=== PATIENT | female | born 1975 | race Caucasian/White ===

== ENCOUNTER 2016-11-08 03:32 | Emergency (ER) | payer OTHER ==
[2016-11-08] MEDS ORDERED: oxyCODONE/Acetamin 5/325 MG* TAB PO ONE (04:22)
[2016-11-08 05:14] VITALS: BP 110/72
--- NOTE | 2016-11-08 05:40 | ED ---
Severo Syed Matthew, scribed for Kit Love on 11/08/16 at 0459 . Complex/Multi-Sys Presentation - HPI Summary HPI Summary: A 41 y/o female presents to the ED with constant nerve pain in her bilateral upper and lower extremities. The pain is rated 7/10 in severity. She states she has a long Hx of nerve pain from a ganglion cyst. The cyst was removed once, but has returned. She is seeking pain medication. She was seen at the pain clinic last week. - History Of Current Complaint Chief Complaint: EDGeneral Time Seen by Provider: 11/08/16 04:11 Hx Obtained From: Patient Onset/Duration: Still Present Timing: Constant Severity Currently: Moderate Severity Initially: Moderate Location: Pain At: - bilateral UE and LE - Allergies/Home Medications Allergies/Adverse Reactions: Allergies Allergy/AdvReac Type Severity Reaction Status Date / Time Amoxicillin [From Augmentin] Allergy Rash Verified 06/02/16 15:27 Clavulanic Acid Allergy Rash Verified 06/02/16 15:27 [From Augmentin] PMH/Surg Hx/FS Hx/Imm Hx Endocrine/Hematology History: Denies: Hx Diabetes Cardiovascular History: Denies: Hx Hypertension, Hx Pacemaker/ICD Respiratory History: Reports: Hx Asthma GI History: Reports: Hx Gastroesophageal Reflux Disease - ON MEDICATION FOR-PRN , Hx Irritable Bowel History: Denies: Hx Renal Disease Musculoskeletal History: Reports: Hx Arthritis - BACK, HANDS, Hx Bursitis Sensory History: Denies: Hx Contacts or Glasses, Hx Hearing Aid Opthamlomology History: Denies: Hx Contacts or Glasses Neurological History: Reports: Hx Nerve Disease - NEUROPATHY, Other Neuro Impairments/Disorders - RIGHT SIDE PERIPHERAL NEUROPATHY Psychiatric History: Reports: Hx Anxiety - ON MEDICATION FOR; PANIC DISORDER, Hx Depression - ON MEDICATION, Hx Panic Disorder - ANXIETY - Surgical History Surgery Procedure, Year, and Place: RT KNEE ACL REPAIR, ,BREAST AUGMENTATION 2001. RIGHT GANGLION CYST REMOVED 01/2016. CANCEROUS MOLE REMOVED FROM LEFT FOOT 2011 Hx Anesthesia Reactions: Yes - TAKES A LITTLE MORE TIME TO COME OUT OF ANESTHESIA;NAUSEA Infectious Disease History: No Infectious Disease History: Denies: Traveled Outside the [place] in Last 30 Days - Family History Known Family History: Positive: Other - cousin of colon CA age 39 IBS gastroparesis - Social History Alcohol Use: None Substance Use Type: Reports: None Smoking Status (MU): Heavy Every Day Tobacco Smoker Amount Used/How Often: 15 CIGARETTES PER DAY X 20 YEARS Have You Smoked in the Last Year: Yes Review of Systems Constitutional: Negative Eyes: Negative ENT: Negative Cardiovascular: Negative Respiratory: Negative Gastrointestinal: Negative Genitourinary: Negative Positive: Myalgia - bilateral UE and LE pain Skin: Negative Neurological: Negative Psychological: Normal All Other Systems Reviewed And Are Negative: Yes Physical Exam Triage Information Reviewed: Yes Vital Signs On Initial Exam: Initial Vitals Temp Pulse Resp BP Pulse Ox 97.5 F 83 20 131/96 96 11/08/16 03:34 11/08/16 03:34 11/08/16 03:34 11/08/16 03:34 11/08/16 03:34 Vital Signs Reviewed: Yes Appearance: Positive: Well-Appearing, No Pain Distress Skin: Positive: Warm, Skin Color Reflects Adequate Perfusion, Dry Head/Face: Positive: Normal Head/Face Inspection Eyes: Positive: EOMI, KIM ENT: Positive: Normal ENT inspection Neck: Positive: Supple, Nontender Respiratory/Lung Sounds: Positive: Clear to Auscultation, Breath Sounds Present Cardiovascular: Positive: RRR, Pulses are Symmetrical in both Upper and Lower Extremities Abdomen Description: Positive: Nontender, Soft Bowel Sounds: Positive: Present Musculoskeletal: Positive: Normal, Strength/ROM Intact Neurological: Positive: Normal, Sensory/Motor Intact, Alert, Oriented to Person Place, Time Psychiatric: Positive: Affect/Mood Appropriate Diagnostics - Vital Signs Vital Signs Temp Pulse Resp BP Pulse Ox 11/08/16 03:34 97.5 F 83 20 131/96 96 - Laboratory Lab Statement: Any lab studies that have been ordered have been reviewed, and results considered in the medical decision making process. Complex Multi-Symp Course/Dx Assessment/Plan: The patient has drug seeking behavior. - Diagnoses Provider Diagnoses: Musculoskeletal pain, Chronic pain Discharge - Discharge Plan Condition: Stable Disposition: HOME Prescriptions: oxyCODONE/Acetamin 5/325 MG* [Percocet 5/325 TAB*] 1 tab PO Q8H PRN #12 tab MDD 3 PRN Reason: Pain Patient Education Materials: Oxycodone/Acetaminophen (By mouth), Musculoskeletal Pain (ED) Referrals: Brady Camacho MD [Primary Care Provider] - 3 Days Additional Instructions: Please follow-up with your primary care physician in 3 days. The documentation as recorded by the Severo pineda Matthew accurately reflects the service I personally performed and the decisions made by , Kit Love.
== END 2016-11-08 05:13 | disposition home or self-care (01) ==
LOC: ED 03:32
DX: M79.1 Myalgia (principal); G89.29 Other chronic pain
CPT/HCPCS: 99282; A9270-GY

== ENCOUNTER 2019-09-08 18:22 | Emergency (ER) | payer MEDICARE ==
--- OUTSIDE RECORDS SUMMARY | 2019-09-08 18:27 | XMS REPORT | Continuity of Care Document ---
:1975 External Reference #:[id number] Author Name Acacia Lozada M.D. (transmitted by agent of provider Mikayla Gross) Address [address], [place] [address] Care Team Providers Name Role Phone Solo Woodard MD - Endocrinology, Care Team Information [employer] Diabetes & Metabolism [facility] - Care Team Information [employer] [phone] Supervisor Last Model Department Naresh Talbert MD - Hand Surgery Care Team Information [employer] Willem Mg MD - Anesthesiology Care Team Information [employer] Regan Simpson MD - Endocrinology, Care Team Information [employer] Diabetes & Metabolism Nicole Call M.D. 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 Onset: 08/01/2019 Social History Type Date Description Comments Sex Unknown Tobacco Use Start: Unknown End: Former Cigarette Smoker 1 Unknown Pack Daily Smoking Status Reviewed: 08/01/19 Former Cigarette Smoker 1 Pack Daily ETOH Use 04/06/2018 Denies alcohol use Recreational Drug Use Denies Drug Use Tobacco Use Start: Unknown End: Patient is a former smoker 08/2017 Unknown Allergies, Adverse Reactions, Alerts Active Allergies Reaction Severity Comments Date Augmentin rash 09/05/2015 Medications Active Medications SIG Qnty Indications Ordering Date Provider Amlodipine Besylate 1 by mouth every 30tabs I10 Acacia Lozada, 08/01/2019 5mg day M.D. Tablets Ropinirole HCL one po 30 30tabs G25.81 Guadalupe Yoo, 07/11/2019 3mg minutes before N.P. Tablets bed Omeprazole Take 1 Capsule 30caps K29.70 Ashlyn 07/26/2018 20mg Capsules By Mouth Once Esperanza Vences DR Vitamin D take one capsule 4caps E55.9 Brady Armas 11/12/2017 (Ergocalciferol) by mouth once Esperanza Camacho,FACP weekly 96281Kbeb Capsules Cymbalta 2 by mouth qd 90caps Brady Armas 02/01/[address] Doug M.D.,FACP Part Gabapentin Take 2 Tablets 180tabs G90.521 Acacia Lozada, 09/18/2016 600mg Tablets By Mouth Every M.D. Morning, 2 Tabs In The Afternoon And Take 2 Tabs AT Bedtime as Needed Proair HFA Inhale 2 Puffs 8.5units Tory Miramontes MD 09/05/2015 108(90Base) By Mouth Every 4 mcg/Act Aerosol Hours as Needed Cyclobenzaprine HCL take one tablet 30tabs Acacia Lozada, 09/05/2015 10mg by mouth three M.D. Tablets times daily as needed for spasm Adderall XR bid Dr. Travis Unknown 30mg Caps ER 24HR Reglan 1 tablet daily 30tabs Tory Miramontes MD 10mg Tablets as needed for nausea Xanax take 1/2 - 1 tab Unknown 0.5mg Tablets once a day as needed for anxiety Medications Administered in Office Medication SIG Qnty Indications Ordering Provider Date No Injection Naresh Huggins M.D. 01/17/2016 Injection Immunizations CPT Code Status Date Vaccine Reaction Lot # [id number] Given 08/01/2019 Influenza Virus Vaccine, administered to left [id number] Quadrivalent, Split, deltoid, no remarkable Preservative Free notings present, well tolerated, bandaid applied. pt signed consent sheet. [id number] Given 08/31/2017 Influenza Virus Vaccine, [id number] Quadrivalent, Split, Preservative Free [id number] Given 06/03/2016 Pneumonia Vaccine no reaction [id number] Vital Signs Date Vital Result Comment 08/01/2019 9:53am Height 65.5 inches 5'5.50" Weight 283.38 lb Heart Rate 90 /min BP Systolic 138 mmHg BP Diastolic 87 mmHg Body Temperature 97.2 F O2 % BldC Oximetry 99 % BMI (Body Mass Index) 46.4 kg/m2 01/16/2019 11:19am Height 65.5 inches 5'5.50" Weight 293.00 lb Heart Rate 86 /min BP Systolic Sitting 122 mmHg BP Diastolic Sitting 86 mmHg Body Temperature 97.0 F O2 % BldC Oximetry 96 % BMI (Body Mass Index) 48.0 kg/m2 Results Description No Information Available Procedures Date Code Description Status 08/01/2019 69954 EKG Tracing & Interpretation Completed 02/16/2018 [id number] Colonoscopy Completed Medical Devices Description No Information Available Encounters Description No Information Available Assessments Date Code Description Provider 08/01/2019 I10 Essential (primary) hypertension Acacia Lozada M.D. 08/01/2019 E78.00 Pure hypercholesterolemia, unspecified Acacia Lozada M.D. 08/01/2019 Z23 Encounter for immunization Acacia Lozada M.D. Plan of Treatment Future Appointment(s):08/10/2019 9:50 am - Acacia Lozada M.D. at [facility] - [facility]12/10/2018 - Acacia Lozada M.D.I10 Essential (primary ) hypertensionNew Medication:Amlodipine Besylate 5 mg - 1 by mouth every dayComments:HYPERTENSION:Gave written information about low sodium diets. Reviewed nonpharmacologic strategies to lower bp.Please monitor blood pressure outside of the office. Ideally, check your blood pressure once weekly. The grocery store is a fine place to do this if you do not own a blood pressure cuff. Please keep a log and bring to all your appointments. Goal blood pressure is less than 120/80.Follow up:10 days with me , labs olsvrL86.00 Pure hypercholesterolemia, unspecifiedNew Labs:Lipid Profile (Trig/Chol/HDL), Ordered : 08/01/19Comp Metabolic Panel, Ordered: 08/01/19Comments:discussed your cholesterol has been high, please pay attention to diet and salt intake /start walking daily/try to loose weight , which helps with BP , heart health and cholesterol [id number] Encounter for immunization Functional Status Description No Information Available Mental Status Description No Information Available Referrals Description No Information Available
--- OUTSIDE RECORDS SUMMARY | 2019-09-08 18:28 | XMS REPORT ---
:1975 Author Name Carol Antonio Address [facility] [address] [place] [address] Care Team Providers Name Role Phone Carol Antonio Unavailable Unavailable Selina Travis Unavailable Unavailable Allergies, Adverse Reactions, Alerts Allergy Code CodeSystem Reaction Severity Status Substance RxNorm Medications Medication Medication Medication Start Route Dose Status Fill Code CodeSystem Date Instructions RxNorm NoCurrentDos No age Longer NoCurrentFre Active quency alprazolam RxNorm 2018-0 oral 1 mg No for 15 3-21 tablet Longer day(s) Active dextroamphetamine-a RxNorm 2018-0 oral 30 mg No for 30 mphetamine 4-17 tablet Longer day(s) Active alprazolam RxNorm 2018-0 oral 1 mg No for 15 5-22 tablet Longer day(s) Active dextroamphetamine-a RxNorm 2018-0 oral 30 mg 1 No 1 tablet mphetamine 5-22 tablet once Longer once a day a day Active for 30 day(s) duloxetine RxNorm 2019-0 oral 60 mg No for 30 1-16 capsule,preston Longer day(s) yed Active release(DR/E C) Rexulti RxNorm 2019-0 oral 3 mg No for 30 1-16 tablet Longer day(s) Active duloxetine RxNorm 2019-0 oral 60 mg 1 No 1 capsule 5-03 capsule,preston Longer twice a day yed Active for 30 day(s) release(DR/E C) twice a day Rexulti RxNorm 2019-0 oral 3 mg 1 No 1 tablet 5-03 tablet once Longer once a day a day Active for 30 day(s) dextroamphetamine-a RxNorm 2019-0 oral 30 mg No for 30 mphetamine 3-15 tablet Longer day(s) Active dextroamphetamine-a RxNorm 2019-0 oral 30 mg 1 No 1 tablet mphetamine 4-17 tablet twice Longer twice a day a day Active for 30 day(s) gabapentin RxNorm 2019-0 oral 600 mg Active for 30 1-22 tablet day(s) hydrochlorothiazide RxNorm 2019-0 oral 12.5 mg Active for 30 3-27 capsule day(s) dextroamphetamine-a RxNorm 0 oral 30 mg 1 No 1 tablet mphetamine 5-30 tablet twice Longer twice a day a day Active for 30 day(s) dextroamphetamine-a RxNorm 2018-0 oral 30 mg No for 30 mphetamine 5-22 tablet Longer day(s) Active dextroamphetamine-a RxNorm 0 oral 30 mg Active for 30 mphetamine 8-07 tablet day(s) alprazolam RxNorm 0 oral 1 mg No for 15 5-22 tablet Longer day(s) Active alprazolam RxNorm 0 oral 1 mg No for 15 7-16 tablet Longer day(s) Active Hospital Discharge Medications Medication Direction Start Date Status Indications Fill Instuctions No Discharge Medication Problems Problem Name Code CodeSystem Start Date End Date Status SNOMED-CT 2018-11-18 Active SNOMED-CT 2019-01-19 Active SNOMED-CT 2019-01-19 Active SNOMED-CT 2019-01-19 Active Laboratory Values/Results Test Test Code Code System Actual Result Date [facility] Procedures Procedure Name Code CodeSystem Target Site Date of Procedure SNOMED-CT () 2019-04-05 SNOMED-CT () 2019-05-05 Encounter Diagnosis Code CodeSystem Description Date Finding Finding Code Status SNOMED-CT - SNOMED-CT Vital Signs Vitals Date Value Immunizations Vaccine Name Vaccine Code CodeSystem Date Status Social History Element Description Start Date End Date Code CodeSystem Description SNOMED-CT Hospital Discharge Instructions Reason For Referral
[2019-09-08 18:56] VITALS: BP 122/78
--- NOTE | 2019-09-08 19:13 | UC ---
Throat Pain/Nasal Phuc HPI - HPI Summary HPI Summary: 44-year-old woman comes in with a chief complaint of one week of upper respiratory tract infection symptoms. She's had rhinorrhea and sinus pressure. Is postnasal drip with a changing her voice. She's got cough. Does have a history of asthma but does not feel any wheezing or any congestion in her chest at this time. No fevers. - History of Current Complaint Chief Complaint: UCRespiratory Stated Complaint: COUGH Time Seen by Provider: 09/08/19 18:39 Hx Last Menstrual Period: 04/27/16 Pain Intensity: 0 - Allergies/Home Medications Allergies/Adverse Reactions: Allergies Allergy/AdvReac Type Severity Reaction Status Date / Time amoxicillin [From Augmentin] Allergy Rash Verified 09/08/19 18:56 clavulanic acid Allergy Rash Verified 09/08/19 18:56 [From Augmentin] Home Medications: Home Medications ALPRAZolam TAB* [Xanax TAB*] 0.5 mg PO TID PRN 09/08/19 [History Confirmed 09/08] Dextroamphetamine/Amphetamine [Adderall 30 mg Tablet] 30 mg PO BID 09/08/19 [ History Confirmed 09/08/19] Metoclopramide TAB* [Reglan TAB*] 10 mg PO Q6H 09/08/19 [History Confirmed 09/08] Omeprazole CAP(NF) [PriLOSEC CAP(NF)] 20 mg PO DAILY 09/08/19 [History Confirmed 09/08/19] PMH/Surg Hx/FS Hx/Imm Hx Previously Healthy: Yes Respiratory History: Asthma GI/ History: Gastroesophageal Reflux - Surgical History Surgical History: Yes Surgery Procedure, Year, and Place: RT KNEE ACL REPAIR, ,BREAST AUGMENTATION 2001. RIGHT GANGLION CYST REMOVED 01/2016. CANCEROUS MOLE REMOVED FROM LEFT FOOT 2011 - Family History Known Family History: Positive: Other - cousin of colon CA age 39 IBS gastroparesis - Social History Alcohol Use: None Substance Use Type: None Smoking Status (MU): Former Smoker Amount Used/How Often: 15 CIGARETTES PER DAY X 20 YEARS Have You Smoked in the Last Year: Yes Review of Systems All Other Systems Reviewed And Are Negative: Yes Constitutional: Positive: Negative Skin: Positive: Negative Eyes: Positive: Negative ENT: Positive: Sore Throat, Nasal Discharge, Sinus Congestion Respiratory: Positive: Cough Cardiovascular: Positive: Negative Gastrointestinal: Positive: Negative Motor: Positive: Negative Neurovascular: Positive: Negative Musculoskeletal: Positive: Negative Neurological: Positive: Negative Psychological: Positive: Negative Is Patient Immunocompromised?: No Physical Exam Triage Information Reviewed: Yes Appearance: No Pain Distress, Well-Nourished, Ill-Appearing - mild Vital Signs: Initial Vital Signs Temp 97.7 F 09/08/19 18:52 Pulse 91 09/08/19 18:52 Resp 18 09/08/19 18:52 BP 122/78 09/08/19 18:52 Pulse Ox 100 09/08/19 18:52 Vital Signs Reviewed: Yes Eye Exam: Normal Eyes: Positive: Conjunctiva Clear ENT: Positive: Pharyngeal erythema, Nasal congestion, Nasal drainage, TMs normal Neck: Positive: Supple Respiratory: Positive: Lungs clear, Normal breath sounds, No respiratory distress Cardiovascular: Positive: RRR Musculoskeletal: Positive: Strength Intact, ROM Intact Neurological: Positive: Alert, Muscle Tone Normal Psychological: Positive: Age Appropriate Behavior Skin Exam: Normal Throat Pain/Nasal Course/Dx - Course Course Of Treatment: DISCUSSED VIRAL VERSES BACTERIAL INFECTIONS AND THE ROLE OF ANTIBIOTICS. THE PATIENT PREFERS TO BE ON ANTIBIOTICS AT THIS TIME. - Differential Dx/Diagnosis Provider Diagnosis: Sinusitis Discharge ED - Sign-Out/Discharge Documenting (check all that apply): Patient Departure All imaging exams completed and their final reports reviewed: No Studies - Discharge Plan Condition: Stable Disposition: HOME Prescriptions: DOXYcycline CAP(*) [DOXYcycline 100MG CAP(*)] 100 mg PO BID #20 cap Fluticasone NASAL SPRAY 50MCG* [Flonase NASAL SPRAY 50MCG*] 2 spray BOTH NARES DAILY #1 btl Patient Education Materials: Sinusitis (ED) Referrals: Nicole Call MD [Primary Care Provider] - Additional Instructions: FOLLOW UP WITH YOUR DOCTOR IF NOT COMPLETELY IMPROVED. GET REEVALUATED SOONER IF NOT IMPROVED OR WORSE OR ANY QUESTIONS OR CONCERNS. - Billing Disposition and Condition Condition: STABLE Disposition: Home
== END 2019-09-08 19:19 | disposition home or self-care (01) ==
LOC: UCEAST 18:22
DX: J32.9 Chronic sinusitis, unspecified (principal); J45.909 Unspecified asthma, uncomplicated; K21.9 Gastro-esophageal reflux disease without esophagitis; Z88.0 Allergy status to penicillin; Z79.899 Other long term (current) drug therapy; Z87.891 Personal history of nicotine dependence
CPT/HCPCS: 99212; G0463